=== PATIENT | male | born 1960 | race Caucasian/White ===

== ENCOUNTER → 2019-06-13 09:36 | Outpatient (CLI) | payer OTHER ==
--- NOTE | ~2019-06-13 | EC ---
PATIENT:BRYANNA LANGE DATE OF SERVICE: 06/13/19 SEX: M MEDICAL RECORD: [id number] DATE OF : 62 LOCATION:D[facility] AGE OF PATIENT: 58 ADMISSION DATE: 06/13/19 REFERRING PHYSICIAN: INTERPRETING PHYSICIAN: ARACELI MICHEL MD ECHOCARDIOGRAM REPORT ECHO CHARGES 4 ECHO COMPLETE Date: 06/13/19 CLINICAL DIAGNOSIS: HX OF AFIB/HTN/TRACE MR/TR ECHOCARDIOGRAPHIC MEASUREMENTS (adult normal given) AC root (d.<3.7cm) 4.2 cm LV Septum d (<1.2 cm> 1.1 cm Valve Excursion 2.5 cm LV Septum (systole) 1.8 cm Left Atria (s.<4.0cm> 4.8 cm LVPW d(<1.2cm) 1.6 cm RV (d.<2.3cm) 3.2 cm LVPW (sytole) 1.9 cm LV diastole(<5.6CM) 5.2 cm MV E-F(>70mm/sec) cm LV systole 3.3 cm LVOT Diameter 2.3 cm MV exc.(>10mm) 1.4 cm Est.ejection fraction (50-75%) % DOPPLER: LVIT cm/sec A 62.0 cm/sec E 54.0 cm/sec LA cm/sec RVSP 28 mmHg LVOT 94 cm/sec AOP1/2T m/s Asc. Ao 120 cm/sec RVOT 67 cm/sec RA cm/sec PA 107 cm/sec AV Gradient Peak 5.74 mmHg AV Mean 2.82 mmHg AV Area 3.1 cm MV Gradient Peak 2.39 mmHg MV Mean 0.95 mmHg MV Area cm COMMENTS: Radio News Anchor: 2 ALEXANDER AHUJA Canary Breeder: 3 Dr. Marr TAPE# PACS Pericardial Effusion N DATE OF SERVICE: Adequate 2D, color flow imaging, spectral Doppler, and M-Mode. Mild LVH. LV internal dimension is normal. Wall motion is normal. EF is greater than or equal to 55%. Aortic valve is tricuspid. No evidence of stenosis by Doppler interrogation. Left atrium is dilated at 4.8 cm. Mitral valve shows no prolapse. Trace MR. Right-sided chambers are grossly normal. Trace TR. ECHOCARDIOGRAM REPORT [id number] BRYANNA LANGE TRANSINT:[id number] Voice Confirmation ID: [id number] DOCUMENT ID: [id number] ARACELI MICHEL MD CC: [id number] DICTATION DATE: 06/16/19 1002 CHARGE ENTRY SPECIALIST: 06/16/19 1705 [facility] CLI 06/13/19 [place] [id number]
== END | disposition home or self-care (01) ==
LOC: D.HCCECHO 09:36
PROVIDERS: ATTEND Internal Medicine Interventional Cardiology
DX: I48.91 Unspecified atrial fibrillation (principal)

== ENCOUNTER → 2020-07-07 07:48 | Outpatient (CLI) | payer OTHER ==
--- NOTE | 2020-07-08 08:19 | EC ---
PATIENT:BRYANNA LANGE DATE OF SERVICE: 07/07/20 SEX: M MEDICAL RECORD: [id number] DATE OF : 62 [facility] AGE OF PAT[facility]: 59 ADMISSION DATE: 07/07/20 REFERRING PHYSICIAN: INTERPRETING PHYSICIAN: ARACELI MICHEL MD ECHOCARDIOGRAM REPORT ECHO CHARGES 4 ECHO COMPLETE Date: 07/07/20 CLINICAL DIAGNOSIS: ASSESS EF/LVH/VAVLES HX OF HTN/AFIB ECHOCARDIOGRAPHIC MEASUREMENTS (adult normal given) AC root (d.<3.7cm) 4.2 cm LV Septum d (<1.2 cm> 1.4 cm Valve Excursion 2.3 cm LV Septum (systole) 1.7 cm Left Atria (s.<4.0cm> 4.7 cm LVPW d(<1.2cm) 1.4 cm RV (d.<2.3cm) 4.1 cm LVPW (sytole) 1.8 cm LV diastole(<5.6CM) 6.1 cm MV E-F(>70mm/sec) cm LV systole 3.7 cm LVOT Diameter 1.9 cm MV exc.(>10mm) 1.8 cm Est.ejection fraction (50-75%) % DOPPLER: LVIT cm/sec A 54.0 cm/sec E 68.0 cm/sec LA cm/sec RVSP 32 mmHg LVOT 108 cm/sec AOP1/2T m/s Asc. Ao 112 cm/sec RVOT 75 cm/sec RA cm/sec PA 110 cm/sec AV Gradient Peak 5.06 mmHg AV Mean 2.90 mmHg AV Area 2.4 cm MV Gradient Peak 3.05 mmHg MV Mean 1.10 mmHg MV Area cm COMMENTS: Ceramics Machine Operator: 2 ALEXANDER AHUJA Heel Layer: 3 Dr. Marr TAPE# PACS Pericardial Effusion N DATE OF SERVICE: Adequate 2D, color flow imaging, spectral Doppler, and M-Mode. FINDINGS: LVH is present. LV internal dimension is normal. Wall motion is normal. EF is greater than or equal to 55%. Aortic valve is sclerotic. No evidence of stenosis by Doppler interrogation. Left atrium is dilated at 4.7 cm. Mitral valve shows no prolapse. Trace MR. Right side is grossly normal. Trace TR. ECHOCARDIOGRAM REPORT [id number] BRYANNA LANGE TRANSINT:[id number] Voice Confirmation ID: [id number] DOCUMENT ID: [id number] ARACELI MICHEL MD at 0819 CC: [id number] DICTATION DATE: 07/07/201623 CARPENTER REFRIGERATOR: 07/07/20 2330 [facility] CLI 07/07/20 [place] [id number] [place] [id number]
== END | disposition home or self-care (01) ==
LOC: D.HCCECHO 07:48
PROVIDERS: ATTEND Internal Medicine Interventional Cardiology
DX: I10 Essential (primary) hypertension (principal)